=== PATIENT | male | born 1975 | race African-American/Black ===

== ENCOUNTER 2016-10-12 16:06 | Emergency (ER) | payer MEDICAID ==
[~2016-10-12] VITALS: Ht 170.2 cm; Wt 73.0 kg
[2016-10-12] MEDS ORDERED: TETANUS, DIPHTHERIA, PERTUSSIS VAC/PF 0.5ML (>7YR OLD) IM ONE (21:00)
[2016-10-12 22:57] VITALS: BP 127/81
[2016-10-12] MEDS ORDERED: BACITRACIN ZINC OINT UDPKT TOP ONE (23:00)
== END 2016-10-13 00:02 | disposition home or self-care (01) ==
LOC: ER 16:06
DX: S01.21XA Laceration without foreign body of nose, initial encounter (principal); F17.210 Nicotine dependence, cigarettes, uncomplicated; W01.198A Fall on same level from slipping, tripping and stumbling with subsequent striking against other object, initial encounter; Y93.89 Activity, other specified; Y92.832 Beach as the place of occurrence of the external cause
CPT/HCPCS: 12011; 90471; 90715; 99283; Z7610

== ENCOUNTER 2016-10-14 10:09 | Emergency (ER) | payer MEDICAID ==
[~2016-10-14] VITALS: Ht 170.2 cm; Wt 72.0 kg
[2016-10-14 11:14] VITALS: BP 128/83
== END 2016-10-14 16:44 | disposition home or self-care (01) ==
LOC: ER 13:19
DX: Z48.00 Encounter for change or removal of nonsurgical wound dressing (principal); S00.83XD Contusion of other part of head, subsequent encounter; S01.21XD Laceration without foreign body of nose, subsequent encounter; W19.XXXD Unspecified fall, subsequent encounter; F17.210 Nicotine dependence, cigarettes, uncomplicated
CPT/HCPCS: 70486; 99284

== ENCOUNTER 2016-10-16 19:05 | Emergency (ER) | payer MEDICAID ==
[~2016-10-16] VITALS: Ht 170.2 cm; Wt 71.0 kg
[2016-10-16 23:39] VITALS: BP 120/66
== END 2016-10-17 00:10 | disposition home or self-care (01) ==
LOC: ER 19:05
DX: L01.00 Impetigo, unspecified (principal); F17.200 Nicotine dependence, unspecified, uncomplicated
CPT/HCPCS: 99282; 99283

== ENCOUNTER 2017-06-06 11:08 | Emergency (ER) | payer MEDICAID ==
[~2017-06-06] VITALS: Ht 182.9 cm; Wt 79.0 kg
[2017-06-06 11:23] VITALS: BP 120/70
[2017-06-06 11:46] LABS: CLARITY URINE CLEAR (CLEAR); COLOR URINE YELLOW (YELLOW); KETONES URINE NEGATIVE (NEGATIVE); LEUKOCYTE ESTERASE URINE NEGATIVE (NEGATIVE); NITRITE URINE NEGATIVE (NEGATIVE); OCCULT BLOOD URINE NEGATIVE (NEGATIVE); PH URINE 5.5 (4.5-8.0); PROTEIN URINE NEGATIVE (NEGATIVE); UROBILINOGEN URINE 0.2 E.U./dL (0.2-1.0)
[2017-06-06 12:53] LABS: BASOPHILS % 0.5 % (0.0-2.0); EOSINOPHILS % 3.8 % (0.0-5.0); HEMATOCRIT. 41.2 % (42.0-52.0); HEMOGLOBIN. 13.9 g/dL (14.0-18.0); LYMPHOCYTES % 31.1 % (20.0-50.0); MEAN CORPUSCULAR HEMOGLOBIN 28.7 pg (28.0-32.0); MEAN CORPUSCULAR VOLUME 85.2 fL (80.0-94.0); MEAN PLATELET VOLUME 8.3 fl (7.4-10.4); MONOCYTES % 9.1 % (2.0-8.0); NEUTROPHILS % 55.5 % (40.0-76.0); PLATELET 195 x1000/uL (130-400); RED BLOOD CELL COUNT 4.83 mill/uL (4.7-6.1); RED CELL DISTRIBUTION WIDTH 12.4 % (11.6-14.6)
[2017-06-06 13:42] LABS: CHLORIDE 105 mEq/L (98-107)
== END 2017-06-06 14:49 | disposition home or self-care (01) ==
LOC: ER 11:08
DX: M25.531 Pain in right wrist (principal); M79.641 Pain in right hand; M79.89 Other specified soft tissue disorders
CPT/HCPCS: 36415; 80053; 81003; 85025; 99284

== ENCOUNTER 2017-06-20 10:59 | Emergency (ER) | payer MEDICAID ==
[~2017-06-20] VITALS: Ht 170.2 cm; Wt 78.3 kg
[2017-06-20 11:06] VITALS: BP 121/69
== END 2017-06-20 13:10 | disposition home or self-care (01) ==
LOC: ER 11:59
DX: M25.572 Pain in left ankle and joints of left foot (principal); M25.571 Pain in right ankle and joints of right foot; M25.561 Pain in right knee; M25.562 Pain in left knee; R50.9 Fever, unspecified; M10.9 Gout, unspecified; F17.200 Nicotine dependence, unspecified, uncomplicated
CPT/HCPCS: 36415; 84550; 99283

== ENCOUNTER 2019-11-30 21:30 | Emergency (ER) | payer MEDICAID ==
[~2019-11-30] VITALS: Ht 170.2 cm; Wt 73.0 kg
[2019-11-30] MEDS ORDERED: IBUPROFEN 800MG TABLET PO ONE (23:15)
[2019-11-30] MEDS ORDERED: CYCLOBENZAPRINE 10MG TABLET PO ONE (23:15)
[2019-11-30 23:35] VITALS: BP 119/71
== END 2019-11-30 23:39 | disposition home or self-care (01) ==
LOC: ER 21:30
DX: S10.93XA Contusion of unspecified part of neck, initial encounter (principal); S30.0XXA Contusion of lower back and pelvis, initial encounter; W18.30XA Fall on same level, unspecified, initial encounter; Y93.89 Activity, other specified; Y92.89 Other specified places as the place of occurrence of the external cause; Y99.8 Other external cause status
CPT/HCPCS: 99283

== ENCOUNTER 2019-12-14 08:18 | Emergency (ER) | payer MEDICAID ==
[~2019-12-14] VITALS: Ht 172.7 cm; Wt 72.5 kg
[2019-12-14 08:21] VITALS: BP 139/95
[2019-12-14] MEDS ORDERED: IBUPROFEN 600MG TABLET PO ONE (08:45)
== END 2019-12-14 10:00 | disposition home or self-care (01) ==
LOC: ER 08:24
DX: S52.201A Unspecified fracture of shaft of right ulna, initial encounter for closed fracture (principal); W01.0XXA Fall on same level from slipping, tripping and stumbling without subsequent striking against object, initial encounter; Y93.89 Activity, other specified; Y92.89 Other specified places as the place of occurrence of the external cause; Y99.8 Other external cause status
CPT/HCPCS: 29125; 73110; 99283

== ENCOUNTER 2021-02-09 20:54 | Emergency (ER) | payer MEDICAID ==
[~2021-02-09] VITALS: Ht 177.8 cm; Wt 70.1 kg
[2021-02-10] MEDS ORDERED: KETOROLAC 30MG/ML VIAL IV STA (03:47)
[2021-02-10 04:02] LABS: BASOPHILS % 1.3 % (0.0-2.0); HEMATOCRIT. 41.1 % (42.0-52.0); HEMOGLOBIN. 14.1 g/dL (14.0-18.0); LYMPHOCYTES % 50.6 % (20.0-50.0); MEAN CORPUSCULAR HEMOGLOBIN 31.9 pg (28.0-32.0); MEAN CORPUSCULAR VOLUME 93.3 fL (80.0-94.0); MEAN PLATELET VOLUME 8.3 fl (7.4-10.4); MONOCYTES % 8.7 % (2.0-8.0); NEUTROPHILS % 36.4 % (40.0-76.0); PLATELET 218 x1000/uL (130-400); RED CELL DISTRIBUTION WIDTH 13.7 % (11.6-14.6)
[2021-02-10 04:12] LABS: CHLORIDE 107 mEq/L (98-107)
[2021-02-10 04:17] LABS: ETHANOL BLOOD 131 mg/dL
[2021-02-10 04:22] LABS: CLARITY URINE CLEAR (CLEAR); COLOR URINE YELLOW (YELLOW); KETONES URINE NEGATIVE (NEGATIVE); LEUKOCYTE ESTERASE URINE NEGATIVE (NEGATIVE); NITRITE URINE NEGATIVE (NEGATIVE); OCCULT BLOOD URINE NEGATIVE (NEGATIVE); PH URINE 5.5 (4.5-8.0); PROTEIN URINE NEGATIVE (NEGATIVE); SPECIFIC GRAVITY URINE 1.018 (1.005-1.030); UROBILINOGEN URINE 0.2 E.U./dL (0.2-1.0)
[2021-02-10 04:31] VITALS: BP 115/84
[2021-02-10 04:48] LABS: *AMPHETAMINES SCREEN URINE PRESUMTIVE POSITIVE (NEGATIVE); *BARBITURATES SCREEN URINE NEGATIVE (NEGATIVE)
[2021-02-10 04:49] LABS: *BENZODIAZEPINES SCREEN URINE NEGATIVE (NEGATIVE); *COCAINE SCREEN URINE NEGATIVE (NEGATIVE); CANNABINOID URINE SCREEN NEGATIVE (NEGATIVE); METHADONE URINE SCREEN NEGATIVE (NEGATIVE); OPIATES URINE SCREEN NEGATIVE (NEGATIVE); PHENCYCLIDINE URINE SCREEN NEGATIVE (NEGATIVE)
[2021-02-13 04:07] LABS: NEISSERIA GONORRHOEAE NAA Negative (Negative)
== END 2021-02-10 05:08 | disposition home or self-care (01) ==
LOC: ER 20:54
DX: K40.90 Unilateral inguinal hernia, without obstruction or gangrene, not specified as recurrent (principal); F10.10 Alcohol abuse, uncomplicated; Y90.6 Blood alcohol level of 120-199 mg/100 ml; F15.10 Other stimulant abuse, uncomplicated
CPT/HCPCS: 36415; 80053; 80305; 80320; 81003; 85025; 87491; 87591; 99283; G0480